=== PATIENT | female | born 2000 | race Caucasian/White ===

== ENCOUNTER → 2024-03-08 | Outpatient (REF) | payer OTHER ==
[2024-03-08 19:14] LABS: HEMATOCRIT 39.8 % (36.0-47.0); HEMOGLOBIN 13.3 g/dl (12.0-15.5); MEAN CORPUSCULAR HGB CONC 33.4 g/dl (32.0-36.5); MEAN CORPUSCULAR VOLUME 89.6 fl (80.0-96.0); PLATELET COUNT, AUTOMATED 287 10^3/uL (150-450); RED BLOOD COUNT 4.44 10^6/uL (4.00-5.40)
[2024-03-08 19:38] LABS: ALBUMIN 3.5 G/DL (3.2-5.2); ALKALINE PHOSPHATASE 72 U/L (35-104); ALT/SGPT 13 U/L (7.0-40); AST/SGOT 10 U/L (<34); BILIRUBIN,TOTAL 0.4 MG/DL (0.3-1.2); BLOOD UREA NITROGEN 10 MG/DL (9-23); CALCIUM LEVEL 9.5 MG/DL (8.5-10.1); CARBON DIOXIDE LEVEL 26 MMOL/L (20-31); CHLORIDE LEVEL 109 MMOL/L (98-107); CHOLESTEROL LEVEL 195 MG/DL (<200); CHOLESTEROL RISK RATIO 3.67 (<5); CREATININE FOR GFR 0.66 MG/DL (0.55-1.30); GLOMERULAR FILTRATION RATE > 60.0 (>60); GLUCOSE, FASTING 96 MG/DL (60-100); LDL CHOLESTEROL 117.2 MG/DL (<100); POTASSIUM SERUM 4.7 MMOL/L (3.5-5.1); SODIUM LEVEL 139 MMOL/L (136-145); TOTAL PROTEIN 7.7 G/DL (5.7-8.2); TRIGLYCERIDES LEVEL 124 MG/DL (<150)
[2024-03-08 19:40] LABS: TOTAL 25(OH) VITAMIN D 25.1 NG/ML (20.0-100.0)
== END ==
LOC: M LAB REF 17:29
PROVIDERS: ATTEND Physician Assistant
DX: E78.5 Hyperlipidemia, unspecified (principal); E66.9 Obesity, unspecified; Z13.0 Encounter for screening for diseases of the blood and blood-forming organs and certain disorders involving the immune mechanism; E55.9 Vitamin D deficiency, unspecified; Z68.41 Body mass index [BMI] 40.0-44.9, adult; Z13.1 Encounter for screening for diabetes mellitus

== ENCOUNTER 2024-06-11 08:27 | Emergency (ER) | payer OTHER ==
[~2024-06-11] VITALS: Ht 165.1 cm; Wt 118.2 kg
[2024-06-11 08:48] VITALS: BP 137/87; TEMP 97.7; O2SAT 98
[2024-06-11] MEDS ORDERED: CYCL-707 PO (12:08)
[2024-06-11] MEDS: CYCLOBENZAPRINE 5MG TABLET PO ONE (12:20)
[2024-06-11] MEDS: ACETAMINOPHEN 500 MG TAB PO ONE (12:22)
== END 2024-06-11 12:32 | disposition home or self-care (01) ==
LOC: EDBD 08:27 → M ED 08:27
DX: S30.0XXA Contusion of lower back and pelvis, initial encounter (principal); W00.0XXA Fall on same level due to ice and snow, initial encounter; M54.50 Low back pain, unspecified; Z88.0 Allergy status to penicillin; Z88.6 Allergy status to analgesic agent; Z79.899 Other long term (current) drug therapy; Y92.9 Unspecified place or not applicable; Y93.89 Activity, other specified; Y99.9 Unspecified external cause status

== ENCOUNTER → 2024-08-16 | Outpatient (REF) | payer OTHER ==
[~2024-08-16] MED LIST: CYCL-707 PO
== END ==
LOC: M PLALAB 10:15
PROVIDERS: ATTEND Advanced Practice Midwife
DX: Z34.01 Encounter for supervision of normal first pregnancy, first trimester (principal)

== ENCOUNTER → 2024-08-26 | Outpatient (CLI) | payer OTHER ==
[2024-08-26 11:37] LABS: HEMATOCRIT 38.3 % (36.0-47.0); HEMOGLOBIN 12.8 g/dl (12.0-15.5); MEAN CORPUSCULAR HEMOGLOBIN 29.8 pg (27.0-33.0); MEAN CORPUSCULAR HGB CONC 33.4 g/dl (32.0-36.5); MEAN CORPUSCULAR VOLUME 89.3 fl (80.0-96.0); PLATELET COUNT, AUTOMATED 263 10^3/uL (150-450); RED BLOOD COUNT 4.29 10^6/uL (4.00-5.40); WHITE BLOOD COUNT 11.4 10^3/uL (4.0-10.0)
[2024-08-26 12:35] LABS: HEPATITIS C VIRUS ABY INDEX 0.17 INDEX (<0.8)
[2024-08-26 13:37] LABS: Trichomonas vaginalis (AMP) NOT DETECTED (NEGATIVE)
[2024-08-26 14:01] LABS: GC DNA AMPLIFICATION NEGATIVE (NEGATIVE)
[2024-08-26 14:11] LABS: HIV 1&2 SCREEN REACTIVE (NEGATIVE)
[2024-08-30 12:42] LABS: HIV 1 AB NEGATIVE (NEGATIVE); HIV 2 AB NEGATIVE (NEGATIVE); HIV AG/AB, 4TH GEN REPEATEDLY REACTIVE (NON-REACTIVE)
[2024-09-01 19:23] LABS: HIV 1 RNA Not Detected (Not Detected)
== END ==
LOC: M PLALAB 07:58
PROVIDERS: ATTEND Advanced Practice Midwife
DX: Z34.01 Encounter for supervision of normal first pregnancy, first trimester (principal); Z3A.00 Weeks of gestation of pregnancy not specified

== ENCOUNTER → 2024-10-27 | Outpatient (CLI) | payer OTHER | LOC: M WHC 06:47 | PROVIDERS: ATTEND Advanced Practice Midwife | DX: Z34.02 Encounter for supervision of normal first pregnancy, second trimester (principal) ==

== ENCOUNTER → 2024-12-01 | Outpatient (CLI) | payer OTHER ==
[2024-12-01 11:20] LABS: GLUCOSE CHALLENGE TEST 1 HOUR 109 MG/DL (LESS THAN 140)
[2024-12-01 11:26] LABS: PLATELET COUNT, AUTOMATED 294 10^3/uL (150-450)
[2024-12-01 11:58] LABS: HEPATITIS C VIRUS ABY INDEX 0.03 INDEX (<0.8)
[2024-12-01 12:19] LABS: Trichomonas vaginalis (AMP) NOT DETECTED (NEGATIVE)
[2024-12-01 12:43] LABS: GC DNA AMPLIFICATION NEGATIVE (NEGATIVE)
[2024-12-01 13:11] LABS: HIV 1&2 SCREEN REACTIVE (NEGATIVE)
== END ==
LOC: M PLALAB 07:06
PROVIDERS: ATTEND Obstetrics & Gynecology
DX: Z34.80 Encounter for supervision of other normal pregnancy, unspecified trimester (principal)

== ENCOUNTER → 2024-12-20 | Outpatient (CLI) | payer OTHER | LOC: M WHC 07:12 | PROVIDERS: ATTEND Obstetrics & Gynecology | DX: O28.3 Abnormal ultrasonic finding on antenatal screening of mother (principal); O99.343 Other mental disorders complicating pregnancy, third trimester; F41.8 Other specified anxiety disorders; Z3A.28 28 weeks gestation of pregnancy ==

== ENCOUNTER → 2025-01-06 | Outpatient (CLI) | payer OTHER | LOC: M RAD 07:24 | PROVIDERS: ATTEND Nurse Practitioner Family | DX: O36.5930 Maternal care for other known or suspected poor fetal growth, third trimester, not applicable or unspecified (principal); Z3A.00 Weeks of gestation of pregnancy not specified ==

== ENCOUNTER → 2025-01-11 | Outpatient (CLI) | payer OTHER | LOC: M RAD 13:51 | PROVIDERS: ATTEND Nurse Practitioner Family | DX: O36.5930 Maternal care for other known or suspected poor fetal growth, third trimester, not applicable or unspecified (principal) ==

== ENCOUNTER → 2025-01-18 | Outpatient (CLI) | payer OTHER | LOC: M RAD 14:04 | PROVIDERS: ATTEND Nurse Practitioner Family | DX: Z34.03 Encounter for supervision of normal first pregnancy, third trimester (principal) ==

== ENCOUNTER → 2025-01-25 | Outpatient (CLI) | payer OTHER | LOC: M RAD 13:34 | PROVIDERS: ATTEND Nurse Practitioner Family | DX: O36.5930 Maternal care for other known or suspected poor fetal growth, third trimester, not applicable or unspecified (principal) ==

== ENCOUNTER → 2025-02-01 | Outpatient (CLI) | payer OTHER | LOC: M RAD 13:43 | PROVIDERS: ATTEND Nurse Practitioner Family | DX: O36.5930 Maternal care for other known or suspected poor fetal growth, third trimester, not applicable or unspecified (principal); Z3A.34 34 weeks gestation of pregnancy ==

== ENCOUNTER → 2025-02-02 | Outpatient (REF) | payer OTHER | LOC: M SFHCWAGY 12:39 | PROVIDERS: ATTEND Student in an Organized Health Care Education/Training Program | DX: O36.5930 Maternal care for other known or suspected poor fetal growth, third trimester, not applicable or unspecified (principal); Z3A.00 Weeks of gestation of pregnancy not specified ==

== ENCOUNTER → 2025-02-08 | Outpatient (CLI) | payer OTHER | LOC: M RAD 13:45 | PROVIDERS: ATTEND Nurse Practitioner Family | DX: O36.5930 Maternal care for other known or suspected poor fetal growth, third trimester, not applicable or unspecified (principal); Z3A.00 Weeks of gestation of pregnancy not specified ==

== ENCOUNTER → 2025-02-15 | Outpatient (CLI) | payer OTHER | LOC: M RAD 13:35 | PROVIDERS: ATTEND Nurse Practitioner Family | DX: O36.5930 Maternal care for other known or suspected poor fetal growth, third trimester, not applicable or unspecified (principal); Z3A.35 35 weeks gestation of pregnancy ==

== ENCOUNTER → 2025-02-22 | Outpatient (CLI) | payer OTHER ==
[~2025-02-22] MED LIST changes: +PRENTAB9 PO; +TUMS500C PO
== END ==
LOC: M RAD 13:39
PROVIDERS: ATTEND Nurse Practitioner Family
DX: O36.5930 Maternal care for other known or suspected poor fetal growth, third trimester, not applicable or unspecified (principal)

== ENCOUNTER 2025-02-25 10:15 | Inpatient (IN) | payer OTHER ==
[~2025-02-25] VITALS: Ht 165.1 cm; Wt 136.2 kg
[~2025-02-25 10:15] MED LIST changes: -PRENTAB9 PO; -TUMS500C PO
[2025-02-25] MEDS ORDERED: METHYLERGONOVINE MALEATE 0.2 MG/ML 1 ML VIAL IM PRN (12:40)
[2025-02-25] MEDS ORDERED: TRANEXAMIC ACID INJection 1,000 MG in NS 100 ML IV PRN (12:40)
[2025-02-25] MEDS ORDERED: LIDOCAINE 1% MDV 20 ML VIAL INFIL PRN (12:40)
[2025-02-25 13:44] LABS: PLATELET COUNT, AUTOMATED 273 10^3/uL (150-450)
[2025-02-25] MEDS: miSOPROStol 50 MCG 1/2 TABLET PO SCH (14:40)
[2025-02-25 14:43] LABS: HIV 1&2 SCREEN NEGATIVE (NEGATIVE)
[2025-02-25 14:51] LABS: HEPATITIS C VIRUS ABY INDEX < 0.02 INDEX (<0.8)
[2025-02-25] MEDS ORDERED: PRENTAB9 PO (19:18)
[2025-02-25] MEDS ORDERED: TUMS500C PO (19:19)
[2025-02-25 20:03] VITALS: BP 110/56
[2025-02-25] MEDS: LR 1,000 ML IV SCH (20:40)
[2025-02-25 21:38] VITALS: BP 108/59
[2025-02-25 23:27] VITALS: BP 139/89
[2025-02-26] VITALS (49 sets, daily range): BP systolic 98–174; BP diastolic 51–86; O2SAT 97
[2025-02-26] MEDS ORDERED: HOME MED LIST COMPLETE! XX SCH (09:00)
[2025-02-26] MEDS: LR 1,000 ML IV SCH (09:55)
[2025-02-26] MEDS: OXYTOCIN DRIP 30 UNITS in IV 1 EA IV SCH (11:33)
[2025-02-26] MEDS ORDERED: FENTANYL 2 MCG/ML ROPIVACAINE 0.2% IN 0.9% NACL 100 ML IVBAG As Ordered ONE (12:23)
[2025-02-26] MEDS ORDERED: diphenhydrAMINE 50 MG/ML VIAL IV PRN (12:25)
[2025-02-26] MEDS ORDERED: NALOXONE INJ 0.4 MG/1 ML VIAL IV PRN (12:25)
[2025-02-26] MEDS ORDERED: EPIDURAL/PCA KEYS XX PRN (12:25)
[2025-02-26] MEDS ORDERED: LR 500 ML IV PRN (12:25)
[2025-02-26] MEDS: FENTANYL/ROPIVACAINE/NACL BAG 100 ML EPIDURAL SCH (12:45)
[2025-02-26] MEDS: ONDANSETRON 4MG/2ML VIAL IV PRN (19:19)
[2025-02-26] MEDS: OXYTOCIN DRIP 30 UNITS in IV 1 EA IV PRN (21:04)
[2025-02-26] MEDS ORDERED: DIBUCAINE 1% OINTMENT 30 GM TOP PRN (22:15)
[2025-02-26] MEDS ORDERED: RHOGAM 300MCG (1500IU) INJ IM SCH (22:15)
[2025-02-26] MEDS ORDERED: METHYLERGONOVINE MALEATE 0.2 MG TAB PO PRN (22:15)
[2025-02-26] MEDS: ACETAMINOPHEN 500 MG TAB PO PRN (23:45)
[2025-02-27 01:00] VITALS: BP 111/58; TEMP 98.6; O2SAT 97
[2025-02-27 05:48] VITALS: BP 100/57; O2SAT 97
[2025-02-27] MEDS: DOCUSATE SODIUM 100 MG CAPSULE PO PRN (08:06)
[2025-02-27] MEDS: PRENATAL VITAMINS CHEWABLE TABLET PO SCH (08:06)
[2025-02-27 09:13] LABS: PLATELET COUNT, AUTOMATED 268 10^3/uL (150-450)
[2025-02-27 09:23] LABS: ALT/SGPT 17 U/L (7.0-40); AST/SGOT 26 U/L (<34); CALCIUM LEVEL 9.1 MG/DL (8.5-10.1); CARBON DIOXIDE LEVEL 22 MMOL/L (20-31); CHLORIDE LEVEL 107 MMOL/L (98-107); CREATININE FOR GFR 0.81 MG/DL (0.55-1.30); GLOMERULAR FILTRATION RATE > 90.0 (>60); POTASSIUM SERUM 4.5 MMOL/L (3.5-5.1); SODIUM LEVEL 139 MMOL/L (136-145)
[2025-02-27 18:00] VITALS: BP 121/72; O2SAT 98
[2025-02-27] MEDS: ACETAMINOPHEN 325 MG TAB PO PRN (19:56)
[2025-02-28 06:00] VITALS: BP 104/59; O2SAT 97
[2025-02-28] MEDS ORDERED: MEASLES,MUMPS,RUBELLA VACCINE INJ (MMR-II) SC.IMMUN ONE (09:00)
[2025-02-28 10:11] VITALS: BP 99/59
[2025-02-28] MEDS ORDERED: ACET-683 PO (11:27)
== END 2025-02-28 14:30 | disposition home or self-care (01) | DRG 807 ==
LOC: M LDI 10:15 → M OBS 02-26 23:45
PROVIDERS: ADMIT Advanced Practice Midwife; ATTEND Advanced Practice Midwife
PROC: 3E033VJ Introduction of Other Hormone into Peripheral Vein, Percutaneous Approach (ICD-10-PCS; 2025-02-25)
PROC: 3E0DXGC Introduction of Other Therapeutic Substance into Mouth and Pharynx, External Approach (ICD-10-PCS; 2025-02-25)
PROC: 10E0XZZ Delivery of Products of Conception, External Approach (ICD-10-PCS; principal; 2025-02-26)
PROC: 0KQM0ZZ Repair Perineum Muscle, Open Approach (ICD-10-PCS; 2025-02-26)
PROC: 10907ZC Drainage of Amniotic Fluid, Therapeutic from Products of Conception, Via Natural or Artificial Opening (ICD-10-PCS; 2025-02-26)
DX: O36.5990 Maternal care for other known or suspected poor fetal growth, unspecified trimester, not applicable or unspecified (principal); Z37.0 Single live birth; Z3A.38 38 weeks gestation of pregnancy; Z88.0 Allergy status to penicillin; Z88.6 Allergy status to analgesic agent; O69.82X0 Labor and delivery complicated by other cord entanglement, without compression, not applicable or unspecified; O70.1 Second degree perineal laceration during delivery